=== PATIENT | male | born 1935 ===

== ENCOUNTER 2019-06-21 11:40 | Outpatient (CLI) | payer OTHER | END 2019-06-21 14:51 | disposition home or self-care (01) | LOC: RAD 11:40 → LAB 11:40 | DX: J44.1 Chronic obstructive pulmonary disease with (acute) exacerbation (principal); J01.80 Other acute sinusitis; J30.89 Other allergic rhinitis; Z79.01 Long term (current) use of anticoagulants; N36.0 Urethral fistula; N18.9 Chronic kidney disease, unspecified; D64.89 Other specified anemias ==

== ENCOUNTER → 2019-06-22 09:08 | Outpatient (CLI) | payer OTHER | END | disposition home or self-care (01) | LOC: LAB 09:08 | DX: D64.89 Other specified anemias (principal); Z79.01 Long term (current) use of anticoagulants; N36.0 Urethral fistula; N18.9 Chronic kidney disease, unspecified ==

== ENCOUNTER 2021-04-14 06:00 | Day surgery (SDC) | payer OTHER | END 2021-04-14 12:15 | disposition home or self-care (01) | LOC: AMB-ENDOS 06:00 | PROVIDERS: ATTEND Colon & Rectal Surgery | DX: D12.2 Benign neoplasm of ascending colon (principal); K64.8 Other hemorrhoids; Z20.822 Contact with and (suspected) exposure to COVID-19; Z12.11 Encounter for screening for malignant neoplasm of colon ==